=== PATIENT | female | born 1980 | race Two or more races ===

== ENCOUNTER 2024-12-05 11:16 | Emergency (ER) | payer OTHER ==
[~2024-12-05] VITALS: Ht 170.2 cm; Wt 68.0 kg
[2024-12-05] MEDS ORDERED: CLONAZEPAM0.5 MG PO (11:56)
[2024-12-05] MEDS ORDERED: ORPHENADRINE CITRATE 30 MG/ML AMPUL IM ONE (13:15)
[2024-12-05] MEDS ORDERED: KETOROLAC TROMETHAMINE 60 MG VIAL IM ONE (13:15)
== END 2024-12-05 16:07 | disposition home or self-care (01) ==
LOC: ER 11:16
DX: R07.89 Other chest pain (principal); M54.59 Other low back pain; Z88.8 Allergy status to other drugs, medicaments and biological substances